=== PATIENT | female | born 1950 ===

== ENCOUNTER 2022-03-19 11:00 | Inpatient (IN) | payer OTHER ==
[~2022-03-19] VITALS: Ht 149.9 cm; Wt 56.7 kg
[2022-03-19] MEDS ORDERED: TIROSINT112 MCG PO (14:40)
[2022-03-19] MEDS ORDERED: TOPROL XL100 M1 PO (14:40)
[2022-03-19] MEDS ORDERED: LOZOL PO (14:41)
[2022-03-19] MEDS ORDERED: COZAAR100 MG PO (14:41)
[2022-03-19] MEDS ORDERED: [UNRECOGNIZED DRUG - OTHER] PO (14:42)
[2022-03-19] MEDS ORDERED: BONIVA150 MG PO (14:42)
[2022-03-19] MEDS ORDERED: INSULIN N (14:44)
[2022-03-19] MEDS ORDERED: VITAMIN C100 MG PO (14:44)
[2022-03-19] MEDS ORDERED: VITAMIN D PO (14:45)
[2022-03-19] MEDS ORDERED: ZINC PO (14:50)
[2022-03-19] MEDS ORDERED: FARXIGA10 MG PO (14:50)
[2022-03-19] MEDS ORDERED: MULTI VITAMIN1 EACH PO (14:50)
[2022-03-21] MEDS ORDERED: INDAPAMIDE1.25 MG (10:57)
[2022-03-21] MEDS ORDERED: ATORVASTATIN CA10 MG (10:57)
[2022-03-21] MEDS ORDERED: OMEGA-3 ACID ETH1 GM (10:57)
[2022-03-21] MEDS ORDERED: TERAZOSIN HCL1 M1 (10:57)
[2022-03-21] MEDS ORDERED: VITAMIN D3250 MCG (10:57)
[2022-03-21] MEDS ORDERED: HUMULIN 70100 UNIT/2 (10:57)
[2022-03-21] MEDS ORDERED: CENTRUM SILVER1 EAC3 (10:58)
[2022-03-21] MEDS ORDERED: OMEGA 3-6-9 CO400 MG (10:58)
[2022-03-21] MEDS ORDERED: GALZIN25 MG (11:04)
== END 2022-03-22 10:26 | disposition home or self-care (01) | DRG 743 ==
LOC: OB/GYN 03-21 07:02 → O/R 03-21 07:02 → SURG 03-21 11:00 → OB/GYN 03-21 14:12 → SURG 03-21 14:30 → OB/GYN 03-22 10:26
PROVIDERS: ADMIT Obstetrics & Gynecology Gynecologic Oncology; ATTEND Obstetrics & Gynecology Gynecologic Oncology
PROC: 0UT74ZZ Resection of Bilateral Fallopian Tubes, Percutaneous Endoscopic Approach (ICD-10-PCS; 2022-03-21)
PROC: 07BC4ZZ Excision of Pelvis Lymphatic, Percutaneous Endoscopic Approach (ICD-10-PCS; 2022-03-21)
PROC: 0UT24ZZ Resection of Bilateral Ovaries, Percutaneous Endoscopic Approach (ICD-10-PCS; 2022-03-21)
PROC: 0DNN4ZZ Release Sigmoid Colon, Percutaneous Endoscopic Approach (ICD-10-PCS; 2022-03-21)
PROC: 0UN14ZZ Release Left Ovary, Percutaneous Endoscopic Approach (ICD-10-PCS; 2022-03-21)
PROC: 0UT94ZZ Resection of Uterus, Percutaneous Endoscopic Approach (ICD-10-PCS; principal; 2022-03-21 14:30)
DX: N80.03 Adenomyosis of the uterus (principal); N84.0 Polyp of corpus uteri; D27.1 Benign neoplasm of left ovary; D27.0 Benign neoplasm of right ovary; N73.6 Female pelvic peritoneal adhesions (postinfective); Z20.822 Contact with and (suspected) exposure to COVID-19